=== PATIENT | female | born 1955 | race Caucasian/White ===

== ENCOUNTER 2025-05-10 15:32 | Emergency (ER) | payer SELFPAY ==
--- NOTE | ~2025-05-10 | XR_ITS ---
XR shoulder LT min 2V 05/10/2025 16:09 Indication: Left shoulder pain Procedure: 4 views left shoulder Comparison: No prior studies for comparison. Findings: There is mild degenerative change of the acromioclavicular joint. No fracture or traumatic malalignment. No soft tissue abnormality. Soft tissues are unremarkable. Impression: 1: No acute bone or joint abnormality. Reviewed, dictated and finalized at location I. CIATE PROGRAMMER Impression: 1: No acute bone or joint abnormality.
--- NOTE | ~2025-05-10 | XR_ITS ---
XR hip LT min 2V 05/10/2025 16:09 INDICATION: Left hip pain after fall PROCEDURE: 2 views left hip COMPARISON: No prior studies for comparison. FINDINGS: Fracture, dislocation or subluxation is not identified. Mild osteoarthritis of the hip. The soft tissues appear within normal limits. No foreign bodies are identified. IMPRESSION: 1: NO ACUTE BONE OR JOINT ABNORMALITY IDENTIFIED. Reviewed, dictated and finalized at location I. OS REPORT DEVELOPER
--- NOTE | ~2025-05-10 | XR_ITS ---
EXAMINATION: XR hand LT min 3V DATE: 05/10/2025 16:09 INDICATION: Fall with left hand injury TECHNIQUE: Posteroanterior, oblique and lateral views of the left hand were obtained. COMPARISON: None. FINDINGS: Diffuse osteopenia. Bone alignment is normal. No fracture. Polyarticular osteoarthritis, severe at the first carpometacarpal joint, moderate severity at the fifth distal phalangeal joint and mild at the wrist, midcarpal, triscaphe and many of the remaining metacarpophalangeal and interphalangeal joints. Soft tissues are unremarkable. IMPRESSION: 1. Polyarticular osteoarthritis as detailed above. No acute osseous abnormality. Reviewed, dictated and finalized at location A. CTOR OF SCIENCE IMPRESSION: 1. Polyarticular osteoarthritis as detailed above. No acute osseous abnormality .
[2025-05-10 15:44] VITALS: BP 137/71; PULSE 85; RESP 17; TEMP 36.6; O2SAT 99
--- OUTSIDE RECORDS SUMMARY | 2025-05-10 16:42 | XMS_ITS | Clinical Summary ---
Author Organization [facility] Address [address] [place] [address] Care Team Providers Care Planogrammer Name Role Phone Unavailable Primary Care Provider Unavailabl e Source Comments [facility],non-owned Affiliates and Associated Physician Practices is amultiple site organization consisting of ambulatory clinics and hospital sitesin [place], [place], [place] and [place]. This disclosure is being madepursuant to the Care Everywhere program and may not contain all information available regarding this patient. Last updated 18.[facility] [employer] Immunizations Immunization Administration Dates Next Due Covid Pfizer primary monovalent 12+ yr 0.3mL Pur ple cap 10/04/2020 Social History Tobacco Use Types Packs/Day Years Used Date Smoking Tobacco: Never Assessed Comments Unknown Sex and Gender Information Value Date Recorded Sex Assigned at Not on file Legal Sex Female 1:56 PM CDT Gender Identity Not on file Sexual Orientation Not on file Plan of Treatment Health Maintenance Due Date Last Done Comments BONE DENSITY TESTING 1955 COLOGUARD (AGES 45-75) - COL ON CA SCREENING 1955 COLON MONITORING 1955 COLONOSCOPY - COLON CA SCREENING 1955 CT COLONOGRAPHY - COLON CA SCREENING 1955 Colorectal Cancer Screening 1955 FIT - COLON CA SCREENING 1955 FLEX SIG - COLON CA SCREENING 1955 LIPID TESTING 1955 MAMMOGRAM 1955 HEPATITIS C SCREENING 10/14/1973 DTAP/TDAP/TD VACCINES (1 - Tdap) 10/18/1974 PNEUMOCOCCAL VACCINE 50+ (1 of 1 - PCV) 10/18/2005 ZOSTER VACCINE (1 of 2) 10/18/2005 DEPRESSION SCREENING 06/09/2024 COVID-19 VACCINE (2 - 2024-2 6 season) 2025 10/04/2020 INFLUENZA VACCINE (#1) 2025 Respiratory Syncytial Virus (RSV) Vaccine Pt: or over 60 yrs (1 - 1-dose 75+ series) 10/18/2030 HEPATITIS B VACCINE Aged Out No longe r eligible based on patient's age to complete this topic HIB VACCINE Aged Out No longer eligi ble based on patient's age to complete this topic HPV VACCINE Aged Out No longer eligi ble based on patient's age to complete this topic MENINGOCOCCAL (Group B) VACC INE SHARED DECISION-MAKING Aged Out No longer eligibl e based on patient's age to complete this topic MENINGOCOCCAL GROUPS A/C/Y/W VACCINE Aged Out No longer eligible b ased on patient's age to complete this topic
--- OUTSIDE RECORDS SUMMARY | 2025-05-10 17:09 | XMS_ITS | Clinical Summary ---
Author Organization [facility] Address [address] [place] [address] Care Team Providers Care Flavor Tank Tender Name Role Phone Unavailable Primary Care Provider Unavailabl e Source Comments [facility],non-owned Affiliates and Associated Physician Practices is amultiple site organization consisting of ambulatory clinics and hospital sitesin [place], [place], [place] and [place]. This disclosure is being madepursuant to the Care Everywhere program and may not contain all information available regarding this patient. Last updated 18.[facility] [employer] Immunizations Immunization Administration Dates Next Due Covid [...]
[2025-05-10 17:15] VITALS: BP 131/82; PULSE 76; RESP 16; O2SAT 98
--- NOTE | 2025-05-10 17:43 | WC.ED.TRAUMA ---
HPI - Trauma General Chief Complaint: Extremity Injury, Upper Stated Complaint: Fall injury to left arm Time Seen by Provider: 05/10/25 16:43 History of Present Illness HPI narrative: Patient slipped while in the store, and fell on her left side, hurting her left hip, hand, shoulder. Related Data Allergies Allergy/AdvReac Type Severity Reaction Status Date / Time No Known Allergies Allergy Verified 05/10/25 15:33 Review of Systems Review of Systems: All systems reviewed & are unremarkable except as noted in HPI and below Exam Narrative: EXAMINATION OF ORGAN SYSTEMS/BODY AREAS: Constitutional: Vital signs per nursing GENERAL:[No acute distress, non-toxic appearing.] HEAD: Normal with no signs of head trauma. EYES: EOMI, conjunctiva normal ENT: Hearing grossly intact LUNGS: Nonlabored breathing. HEART: [Regular rate and rhythm], normal radial pulse with good cap refill ABD: [Soft], [nontender to palpation] EXT: Normal range of motion, bruising and tenderness to palpation to the left hand, left hip. Normal range of motion to left shoulder with minimal tenderness. SKIN: Bruise to left hand and hip NEURO: [Alert. No gross focal sensory or strength deficits.] PSYCH: Normal affect Course Vital Signs Vital signs: Vital Signs Temperature 97.8 F 05/10/25 15:44 Pulse Rate 85 05/10/25 15:44 Respiratory Rate 17 05/10/25 15:44 Blood Pressure 137/71 05/10/25 15:44 Pulse Oximetry 99 05/10/25 15:44 Oxygen Delivery Room Air 05/10/25 15:44 Temperature 97.8 F 05/10/25 15:44 Pulse Rate 76 05/10/25 17:15 Respiratory Rate 16 05/10/25 17:15 Blood Pressure 131/82 05/10/25 17:15 Pulse Oximetry 98 05/10/25 17:15 Oxygen Delivery Room Air 05/10/25 15:44 MDM MDM Narrative Medical decision making narrative: Patient presents here after she slipped and fell, landing on her left side, on exam she has tenderness and bruising to the left hand in hip, and some tenderness to left shoulder, but she has full range of motion is ambulating with normal steady gait. X-rays are negative, patient requesting to go home. Care instructions provided in return precautions with follow-up to PCP as needed Differential Diagnosis Differential Diagnosis: Bruising, fractures, dislocations Imaging Data Radiologist's impression: ITS Impressions Hip X-Ray 05/10/25 16:18 IMPRESSION: 1: NO ACUTE BONE OR JOINT ABNORMALITY IDENTIFIED. Shoulder X-Ray 05/10/25 16:19 Impression: 1: No acute bone or joint abnormality. Hand X-Ray 05/10/25 16:26 IMPRESSION: 1. Polyarticular osteoarthritis as detailed above. No acute osseous abnormality. Discharge Plan Discharge Clinical Impression: Contusion of hip, Contusion of hand Patient Disposition: Home Condition: Stable Instructions: Contusion in Adults (ED) Additional Instructions: You can use ice on your bruises, take Tylenol for pain, follow-up with primary care doctor as needed and come back to the ER for any further issues. Patient Language: Chinese Follow-up/Referrals: Bryce,DIDI Walton [Primary Care Provider, [facility]]
== END 2025-05-10 17:25 | disposition home or self-care (01) ==
PROVIDERS: Emergency Provider Emergency Medicine; PCP Physician Assistant
DX: S70.02XA Contusion of left hip, initial encounter (principal); S60.222A Contusion of left hand, initial encounter; M18.9 Osteoarthritis of first carpometacarpal joint, unspecified; M19.042 Primary osteoarthritis, left hand; M19.032 Primary osteoarthritis, left wrist; W01.0XXA Fall on same level from slipping, tripping and stumbling without subsequent striking against object, initial encounter
CPT/HCPCS: 73030; 73130; 73502; 99284